=== PATIENT | female | born 1945 | race Caucasian/White ===

== ENCOUNTER 2019-11-17 08:33 | Outpatient (CLI) | payer OTHER, MEDICARE, SELFPAY ==
--- NOTE | ~2019-11-17 | MM_ITS ---
EXAMINATION: MM screening andrew BI w lucero HISTORY: Screening mammogram TECHNIQUE: Craniocaudal and mediolateral oblique 3-D tomosynthesis images were obtained and synthetic 2-D images were generated. CAD analysis was submitted and interpreted. COMPARISON: 10/30/2018, 10/25/2016, 10/12/2015 bilateral digital screening mammogram examinations BREAST PARENCHYMAL COMPOSITION: There are scattered areas of fibroglandular density. FINDINGS: There is no evidence of suspicious mass, calcification, or architectural distortion to sugg est malignancy in either breast. There has been no suspicious interval change. IMPRESSION: 1. No mammographic evidence of malignancy. 2. Recommend routine screening mammography in one year. BI-RADS Category 1: Negative Reviewed, dictated and finalized at location A.
== END 2019-11-17 08:34 | disposition home or self-care (01) ==
PROVIDERS: PCP Family Medicine; Visit Provider Obstetrics & Gynecology
DX: Z12.31 Encounter for screening mammogram for malignant neoplasm of breast (principal); Z78.0 Asymptomatic menopausal state
CPT/HCPCS: 77063; 77067

== ENCOUNTER 2021-01-19 11:20 | Emergency (ER) | payer OTHER, MEDICARE, SELFPAY ==
--- NOTE | ~2021-01-19 | XR_ITS ---
EXAMINATION: XR wrist LT min 3V DATE: 01/19/2021 11:39 INDICATION: Left wrist pain post fall TECHNIQUE: Posteroanterior, ulnar deviation, oblique, and lateral views of the left wrist were obtain ed. COMPARISON: 04/15/2009 FINDINGS: Unchanged widening of the scapholunate interval with increased scapholunate angle consistent with sca pholunate ligament insufficiency and dorsal intercalated segment instability (DISI). Minimal progress ion of severe osteoarthritis at the radioscaphoid articulation of the left wrist joint with large randee sushant sided osteophytes at both the scaphoid and distal radius. Moderate to severe osteoarthritis at th e lunocapitate articulation of the midcarpal joint. This pattern of osteoarthritis is consistent with scapholunate advanced collapse (SLAC) wrist. There is additional severe osteoarthritis at the first carpometacarpal joint, moderate osteoarthritis at the triscaphe joint and first interphalangeal joint and mild osteoarthritis at the remaining metacarpophalangeal and visualized interphalangeal joints. Soft tissue swelling about the left wrist. No acute fracture or new traumatic malalignment. IMPRESSION: 1. No acute osseous abnormality. 2. 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 3. Additional more typical pattern of polyarticular osteoarthritis, severe at the first carpometacarp al joint and mild to moderate at the triscaphe and multiple metacarpophalangeal and interphalangeal j oints. Reviewed, dictated and finalized at location B. IMPRESSION: 1. No acute osseous abnormality. 2. Constellation of findings consistent with chronic scapholunate ligament insu fficiency with dorsal intercalated segment instability (DISI) and secondary sca pholunate advanced collapse (SLAC) wrist severe radiocarpal and moderate to sev ere lunocapitate osteoarthritis. 3. Additional more typical pattern of polyarticular osteoarthritis, severe at t he first carpometacarpal joint and mild to moderate at the triscaphe and multip le metacarpophalangeal and interphalangeal joints.
[2021-01-19 11:39] VITALS: BP 156/91; PULSE 102; RESP 16; TEMP 37.4; O2SAT 100
--- NOTE | 2021-01-19 12:08 | WC.ED.TRAUMA ---
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 Patient states she slipped and fell yesterday while doing yard work, from a waist level fall to the ground. She complains of mild wrist pain that is worse with motion, better at rest, somewhat distal radial. No bleeding, deformity but there is diffuse edema and arthritic changes. Regardless of x-ray report advised to wear splint, see orthopedics in follow-up Related Data Home Medications Medication Instructions Recorded Confirmed cholecalciferol (vitamin D3) 25 1,000 unit PO DAILY 04/14/19 01/19/21 mcg (1,000 unit) capsule multivitamin 1 tablet PO DAILY 04/14/19 01/19/21 aspirin 81 mg tablet,delayed 81 mg PO DAILY 05/20/19 01/19/21 release hydrochlorothiazide 12.5 mg PO DAILY 01/19/21 01/19/21 Allergies Allergy/AdvReac Type Severity Reaction Status Date / Time amoxicillin Allergy Severe Rash Verified 01/19/21 11:42 Review of Systems Review of Systems: General/Constitutional: No weight loss,fever Eyes: N0: Redness,discharge Ears/Nose/Throat: No: Epistaxis,ear discharge Respiratory: Denies: Hemoptysis Gastrointestinal: No Vomiting, Bleeding-rectal Skin: No Lumps, eruption Neurologic: No Focal Weakness,Sz Hematologic: Denies: Petechiae/Purpura Psychiatric: No: Suicida ideationl All Other Systems: Reviewed and Negative COUNTS INCLUDE 234 BEDS AT THE [facility] Past Medical History Medical History Hepatitis C antibody test negative (04/01/17) History of vaginal delivery x 3 Uterine cancer Surgical History Surgical History H/O shoulder surgery H/O: hysterectomy History of surgery on arm Family History Family History Mother Hypertension Family history of malignant neoplasm of ovary Patient's mother is Grandparent Diabetes mellitus Sibling Hypertension Family history of elevated blood lipids Other Family history of arthritis Family history of malignant neoplasm No family history of cardiovascular disease No family history of hypertension Social History Social History Smoking status: Never smoker Second hand tobacco smoke exposure: No Alcohol intake: never Substance use: never Substance use type: does not use Gender identity (if verbalized by the patient): Female Spiritual care concerns: No Agree to blood products: Yes Comments At time of signature, agree with nursing past medical, surgical, social and family history. There is no relevant family history pertinent to the presenting complaint Exam Narrative: General Appearance: Well appearing, overweight/well nourished, EYE: PERRLA, EOMI, Conjunctiva clear Ears: External ear normal, Auditory canal normal Nose: Normal nose, Nares clear Mouth/Throat: Normal appearing, Normal lips Neck: Supple Respiratory: Airway patent, No respiratory distress MS-wrist: Normal strength (mostly intact, limited flexion/extension by pain), Tenderness (distal radial, with mild decreased ROM), Swelling (diffusely), Other (no anterior drawer, no collateral laxity, + snuffbox tenderness Skin: Warm, Dry, Normal color Neurological: A&O x3, Speech clear, CN II-XII intact Psychiatric: Normal mood, Normal affect Course Course Emergency Course: Films visualized, interpreted by radiologist, agree, noncontributory ABnormal see report Vital Signs Vital signs: Vital Signs Temperature 99.3 F 01/19/21 11:39 Pulse Rate 102 H 01/19/21 11:39 Respiratory Rate 16 01/19/21 11:39 Blood Pressure 156/91 H 01/19/21 11:39 Pulse Oximetry 100
== END 2021-01-19 12:35 | disposition home or self-care (01) ==
PROVIDERS: Emergency Provider Emergency Medicine; PCP Family Medicine
DX: S69.92XA Unspecified injury of left wrist, hand and finger(s), initial encounter (principal); W01.0XXA Fall on same level from slipping, tripping and stumbling without subsequent striking against object, initial encounter; M25.332 Other instability, left wrist; Z85.42 Personal history of malignant neoplasm of other parts of uterus
CPT/HCPCS: 29125; 73110; 99213; A4565; G0463

== ENCOUNTER 2021-02-10 09:01 | Outpatient (CLI) | payer OTHER, MEDICARE, SELFPAY ==
--- NOTE | ~2021-02-10 | MM_ITS ---
EXAMINATION: MM screening andrew BI w lucero HISTORY: Screening mammogram TECHNIQUE: Craniocaudal and mediolateral oblique 3-D tomosynthesis images were obtained and synthetic 2-D images were generated. CAD analysis was submitted and interpreted. COMPARISON: 11/13/2019, 10/30/2018, 10/25/2016 bilateral digital screening mammogram examinations BREAST PARENCHYMAL COMPOSITION: There are scattered areas of fibroglandular density. FINDINGS: There is no evidence of suspicious mass, calcification, or architectural distortion to sugg est malignancy in either breast. There has been no suspicious interval change. IMPRESSION: 1. No mammographic evidence of malignancy. 2. Recommend routine screening mammography in one year. BI-RADS Category 1: Negative Reviewed, dictated and finalized at location A.
== END 2021-02-10 09:02 | disposition home or self-care (01) ==
PROVIDERS: PCP Family Medicine; Visit Provider Obstetrics & Gynecology
DX: Z12.31 Encounter for screening mammogram for malignant neoplasm of breast (principal)
CPT/HCPCS: 77063; 77067

== ENCOUNTER 2021-02-27 13:50 | Outpatient (CLI) | payer OTHER, MEDICARE, SELFPAY ==
--- NOTE | ~2021-02-27 | DEXA_ITS ---
Bone Density Report Name: Lydia Prabhakar Age: 76 Sex: Female Ethnicity: White Date of : 1945 Indication: postmenopausal; height loss; prior fracture; hysterectomy; Referring Provider: TENA KOCH Study: Bone densitometry was performed. Exam Date: February 27, 2021 Accession number: [id number] Bone Density: Region BMD T-score Z-score Classification AP Spine (L1, L2) 1.057 0.7 3.0 Normal Femoral Neck (Left) 0.649 -1.8 0.3 Osteopenia Total Hip (Left) 0.955 0.1 1.9 Normal Total Hip Bilateral Avg 0.920 -0.2 1.6 Normal Femoral Neck (Right) 0.666 -1.6 0.4 Osteopenia Total Hip (Right) 0.885 -0.5 1.3 Normal World Health Organization criteria for BMD impression classify patients as: Normal (T-score at or above -1.0), Osteopenia (T-score between -1.0 and -2.5), or Osteoporosis (T-score at or below -2.5). 10-year Fracture Risk(1): Major Osteoporotic Fracture 16% Hip Fracture 3.0% Reported Risk Factors: [place] (), Neck BMD=0.649, BMI=42.1, previous fracture (1) FRAX(R) Version 3.08. Fracture probability calculated for an untreated patient. Fracture probability may be lower if the patient has received treatment. Previous Exams: Region Exam Age BMD T-score BMD Change BMD Change Date g/cm2 vs Baseline vs Previous AP Spine(L1, L2) 02/27/2021 76 1.057 0.7 0.047(4.7%)# -0.003(-0.3%) 10/30/2018 73 1.059 0.7 0.050(5.0%)# -0.059(-5.3%)* 10/25/2016 71 1.119 1.3 0.110(10.9%)# 0.080(7.7%)* 10/18/2014 69 1.039 0.5 0.029(2.9%)# 0.029(2.9%)# 06/20/2012 67 1.009 0.3 Total Hip(Left) 02/27/2021 76 0.955 0.1 0.020(2.1%)# 0.059(6.6%)* 10/30/2018 73 0.896 -0.4 -0.039(-4.2%)# -0.024(-2.6%) 10/25/2016 71 0.921 -0.2 -0.015(-1.6%)# -0.011(-1.2%) 10/18/2014 69 0.931 -0.1 -0.004(-0.5%)# -0.004(-0.5%)# 06/20/2012 67 0.936 -0.1 Total Hip(Right) 02/27/2021 76 0.885 -0.5 -0.035(-3.8%)# -0.044(-4.7%)* 10/30/2018 73 0.929 -0.1 0.010(1.0%)# 0.009(0.9%) 10/25/2016 71 0.921 -0.2 0.001(0.1%)# -0.006(-0.6%) 10/18/2014 69 0.926 -0.1 0.007(0.7%)# 0.007(0.7%)# 06/20/2012 67 0.920 -0.2 *Denotes significance at 95% confidence level, LSC for AP Spine = 0.022 g/cm2, LSC for Total Hip = 0.027 g/cm2 Clinical Information Provided by Patient: Has had a low trauma fracture Has used the following medications: Vitamin D, Calcium Has the following medical conditions: Hysterectomy Patient maximum height was 64
== END 2021-02-27 13:51 | disposition home or self-care (01) ==
LOC: ANHIMG 13:53
PROVIDERS: PCP Family Medicine; Visit Provider Obstetrics & Gynecology
DX: Z78.0 Asymptomatic menopausal state (principal); M85.89 Other specified disorders of bone density and structure, multiple sites
CPT/HCPCS: 77080

== ENCOUNTER → 2021-12-08 00:10 | Outpatient (CLI) | payer OTHER, MEDICARE, SELFPAY ==
[2021-12-08 11:34] LABS: SARS-CoV-2 RNA PCR Negative
== END ==
PROVIDERS: PCP Family Medicine; Visit Provider Family Medicine
DX: R05.9 Cough, unspecified (principal); Z20.822 Contact with and (suspected) exposure to COVID-19
CPT/HCPCS: C9803; U0003; U0005

== ENCOUNTER 2022-01-21 07:48 | Outpatient (CLI) | payer OTHER, MEDICARE, SELFPAY ==
--- NOTE | ~2022-01-21 | XR_ITS ---
EXAMINATION: XR shoulder LT min 2V INDICATION: Left shoulder pain TECHNIQUE: Four views of the left shoulder are submitted. COMPARISON: 11/02/2018 FINDINGS: Again noted are changes of left shoulder hemiarthroplasty acute fracture is identified. Gle nohumeral and acromioclavicular joint spaces are normal. Soft tissues are unremarkable. IMPRESSION: 1. Changes of left shoulder hemiarthroplasty without acute osseous abnormality. Reviewed, dictated and finalized at location A.
== END 2022-01-21 07:49 | disposition home or self-care (01) ==
LOC: CHSIMG 07:54
PROVIDERS: PCP Family Medicine; Visit Provider Orthopaedic Surgery
DX: M25.512 Pain in left shoulder (principal)
CPT/HCPCS: 73030

== ENCOUNTER 2022-03-09 08:46 | Outpatient (CLI) | payer OTHER, MEDICARE, SELFPAY ==
--- NOTE | ~2022-03-09 | MM_ITS ---
EXAMINATION: MM screening andrew BI w lucero HISTORY: Screening TECHNIQUE: Craniocaudal and mediolateral oblique 3-D tomosynthesis images were obtained and synthetic 2-D images were generated. CAD analysis was submitted and interpreted. COMPARISON: Comparison to multiple prior studies sequentially, with oldest reviewed study dated 10/06. BREAST PARENCHYMAL COMPOSITION: There are scattered areas of fibroglandular density. FINDINGS: There is no evidence of suspicious mass, calcification, or architectural distortion to sugg est malignancy in either breast. There has been no suspicious interval change. IMPRESSION: 1. No mammographic evidence of malignancy. 2. Recommend routine screening mammography in one year. BI-RADS Category 1: Negative Reviewed, dictated and finalized at location A.
== END 2022-03-09 08:47 | disposition home or self-care (01) ==
PROVIDERS: PCP Family Medicine; Visit Provider Obstetrics & Gynecology
DX: Z12.31 Encounter for screening mammogram for malignant neoplasm of breast (principal)
CPT/HCPCS: 77063; 77067

== ENCOUNTER 2022-03-13 09:58 | Outpatient (CLI) | payer OTHER, MEDICARE, SELFPAY ==
--- NOTE | ~2022-03-13 | CT_ITS ---
EXAMINATION: CT shoulder LT wo con DATE: 03/13/2022 11:05 INDICATION: Left shoulder pain. TECHNIQUE: Computed tomography (CT) of the left shoulder was performed without intravenous contrast. Automated exposure control and iterative reconstruction technique were employed. The dose-length prod uct was 615.99 mGy-cm. COMPARISON: Left shoulder radiographs 01/21/2022, 11/03/17, CT 10/21/17 FINDINGS: There is severe subluxation of humeral head with respect to glenoid with narrowing of the s ubacromial space and remodeling of the undersurface of the acromion, consistent with chronic rotator cuff tear with cuff arthropathy. There is a left shoulder hemiarthroplasty in near-anatomic alignment . No periprosthetic lucency to suggest loosening or infection. No fracture. There is severe osteoarth ritis of acromioclavicular joint. There is severe osteoarthritis of glenohumeral joint with remodelin g of glenoid. There is 3 mm lucency adjacent to the humeral component medially and proximally. There is mild fatty atrophy of infraspinatus muscle belly. IMPRESSION: 1. Left shoulder hemiarthroplasty. 3 mm lucency adjacent to the humeral component medially and proxim ally suggests loosening or infection. 2. Severe glenohumeral joint osteoarthritis with remodeling of glenoid. 3. Chronic rotator cuff tear with cuff arthropathy. 4. Severe acromioclavicular joint osteoarthritis. Reviewed, dictated and finalized at location B. IMPRESSION: 1. Left shoulder hemiarthroplasty. 3 mm lucency adjacent to the humeral compone nt medially and proximally suggests loosening or infection. 2. Severe glenohumeral joint osteoarthritis with remodeling of glenoid. 3. Chronic rotator cuff tear with cuff arthropathy. 4. Severe acromioclavicular joint osteoarthritis.
== END 2022-03-13 09:59 | disposition home or self-care (01) ==
LOC: CHSIMG 10:07
PROVIDERS: PCP Family Medicine; Visit Provider Orthopaedic Surgery
DX: M25.512 Pain in left shoulder (principal)
CPT/HCPCS: 73200

== ENCOUNTER 2022-05-17 18:34 | Emergency (ER) | payer OTHER, MEDICARE, SELFPAY ==
[2022-05-17 18:44] LABS: Glucose Point of Care 148 mg/dl (65-105)
--- NOTE | 2022-05-17 18:47 | ECG_ITS ---
Measurements Intervals Maynard Rate: 57 P: CT: 0 QRS: 88 QRSD: 126 T: 29 QT: 391 QTc: 382 Interpretive Statements PROBABLE ACCELERATED JUNCTIONAL RHYTHM RIGHT BUNDLE-BRANCH BLOCK ST DEVIATION AND MODERATE T-WAVE ABNORMALITY, CONSIDER ANTERIOR ISCHEMIA [-0.1+ mV T WAVE IN V3/V4] ABNORMAL ECG NO PREVIOUS ECG AVAILABLE FOR COMPARISON Electronically Signed On 05-21-2022 17:33:34 [employer] by Amanuel Farias M.D.
--- NOTE | 2022-05-17 19:05 | ED.GENADULT ---
HPI - General Adult General Chief complaint: Cardiac Arrest/CPR Stated complaint: code stemi Source: RN notes reviewed History of Present Illness HPI narrative: Patient presents emergency department via EMS for chest pain. History is per EMS the patient had initially called for weakness and had stated to EMS she had had chest pain since last night she had gone unresponsive in route and they had to bag assist breeze for her but did not lose a pulse as patient was coming into the room in the emergency department the patient was noted to become more agonal breathing and a quick pulse check showed no pulse and CPR was started. Patient's daughter and son are present. They states that patient called earlier today stating that she had may have been having some weakness and also been feeling short of breath Related Data Home Medications Medication Instructions Recorded Confirmed cholecalciferol (vitamin D3) 25 1,000 unit PO DAILY 04/14/19 04/01/22 mcg (1,000 unit) capsule multivitamin (Daily Multi-Vitamin 1 tablet PO DAILY 04/14/19 04/01/22 tablet) aspirin 81 mg tablet,delayed 81 mg PO DAILY 05/20/19 04/01/22 release Allergies Allergy/AdvReac Type Severity Reaction Status Date / Time amoxicillin Allergy Severe Rash Verified 04/01/22 09:40 Review of Systems Review of Systems: ROS unobtainable: Yes unobtainable due to medical condition (Unable to obtain secondary to cardiopulmonary arrest) [facility] Past Medical History Medical History Hepatitis C antibody test negative (04/01/17) History of vaginal delivery x 3 Impingement syndrome, shoulder, left Tendonitis of left rotator cuff Uterine cancer Surgical History Surgical History (Updated 04/01/22 @ 11:18 by Aakash Moran MD) H/O shoulder surgery Shoulder replacement: 2018, Dr. Moran H/O: hysterectomy 1984, [facility] History of arthroplasty of left shoulder History of arthroplasty of left shoulder History of surgery on arm Family History Family History Mother Hypertension Family history of malignant neoplasm of ovary Patient's mother is Grandparent Diabetes mellitus Sibling Hypertension Family history of elevated blood lipids Other Family history of arthritis Family history of malignant neoplasm No family history of cardiovascular disease No family history of hypertension Social History Social History Smoking status: Never smoker Second hand tobacco smoke exposure: No Alcohol intake: never Substance use: never Substance use type: does not use Additional occupation/education comments: Accounts payable- [employer] Gender identity (if verbalized by the patient): Female Spiritual care concerns: No Agree to blood products: Yes Exam Narrative: CAPPEARANCE: Lying in bed unresponsive to verbal and painful stimuli HEENT: Normocephalic, atraumatic, patient with vomit over side of mouth Eyes: Pulses fixed and dilated RESPIRATORY: No spontaneous breath sounds auscultated. Equal breath sounds with bag ventilation CARDIOVASCULAR: No spontaneous heart rate auscultated ABDOMINAL: Soft, nondistended MUSCULOSKELETAl: Distal cyanosis with no spontaneous motion of extremities NEURO: Unresponsive to verbal and painful stimuli SKIN:: Cool and dry Course Course Emergency Course: Patient was CPR performed in ER for over 30 minutes the patient will remain in PEA time she would briefly get a return of pulse over the last approximately 20 to 30 seconds and then the pulse would be lost immediately again patient never regained a sustained pulse family was brought back to the room during CPR Patient time of was 1900. Patient's family was present in the room Called and discussed with who agrees with signing certificate Proced
--- NOTE | 2022-05-17 19:27 | PC.NURSE ---
Patient arrived in to the Emergency department via [facility], life underwriter noticed from across the emergency department, patient was agonal breathing and pale. Upon arrival in to ED room 1, patient continued to have agonal respirations. Director Of [employer] assessed patient had ear lobes, lips, and finger tip were cyanotic. EMS and ED staff were attempting to transfer patient to ED stretcher when patient stopped agonal breathing. Patient was quickly pulled to ED stretcher, no pulse palpated. CPR initiated with compressions at 1828 1830 CPR in progress, no IV access 1832 R tibia IO initiated and flushed with lidocaine 1832 1mg Epi given 183 pulse check, PEA 1836 CPR resumed with compressions 183 Patient intubated with 7.5 ETT, 23 at the lip. 1837 1mg Epi given 1838 50mEq Bicarb given 1840 Pulse check-PEA, 1mg Epi given 1841 CPR resumed with compressions 1841 Blood glucose 148mg/dl 1842 pulse check-Pulse 94, palpable femoral pulse felt 1843 Patient heart rate became bradycardic 1844 1mg Epi 1845 50 mEq Bicarb given 1847 Pulse check-PEA, no palpable pulse 1848 CPR resumed with compressions 1850 Pulse check-PEA 1851 1mg Epi given 1852 Pulse check-PEA 1852 CPR resumed with compressions 1854 Pulse check-PEA 1854 CPR resumed with compressions 1854 1mg Epi given 1856 CPR in progress 1857 1mg Epi given 1858 Pulse check-PEA 1859 CPR resumed with compressions 1900 Pulse check-PEA Time of declared at 1900
--- NOTE | 2022-05-17 22:54 | PC.NURSE ---
per ED Charge Nurse Sapna MARVIN she called [facility], [facility]ists and home called. Patient per family (Alexus Daughter) She is going to [facility]. Patient time of called at 1900.
== END 2022-05-18 00:10 | disposition expired ==
PROVIDERS: Emergency Provider Emergency Medicine; PCP Family Medicine
DX: I46.9 Cardiac arrest, cause unspecified (principal); Z85.42 Personal history of malignant neoplasm of other parts of uterus; Z96.612 Presence of left artificial shoulder joint; Z90.710 Acquired absence of both cervix and uterus; I45.10 Unspecified right bundle-branch block; R94.31 Abnormal electrocardiogram [ECG] [EKG]
CPT/HCPCS: 31500; 82948; 92950; 93005; 99285; J0171; J2001; J7030